=== PATIENT | male | born 1935 | race Caucasian/White ===

== ENCOUNTER → 2021-07-14 08:45 | Outpatient (CLI) | payer MEDICARE, SELFPAY ==
--- NOTE | ~2021-07-14 | CT_ITS ---
EXAMINATION: CT abdomen pelvis wo/w con DATE: 07/14/2021 10:01 INDICATION: History of recurrent urinary tract infections, microscopic hematuria TECHNIQUE: Computed tomography (CT) of the abdomen and pelvis was performed without intravenous contr ast. CT of the abdomen and pelvis was then performed with a total of 130 mL Omnipaque 350 intravenous contrast using a double-bolus technique for simultaneous opacification of the renal parenchyma and r enal collecting system. The dose-length product (DLP) was 1424.29 mGy-cm. Automated exposure control and iterative reconstruction technique were employed. COMPARISON: None FINDINGS: Minimal dependent atelectasis is present in the lung bases. The heart size is normal. There is a moderate-sized sliding hiatal hernia. The liver, spleen, pancreas, and adrenal glands are jaida l. The gallbladder is mildly distended. No stones are identified in the kidneys, ureters, or bladder. There is no hydronephrosis or hydroureter. No suspicious renal or urothelial lesion is identified. T here is a 4.5 x 2.4 x 4.5 cm diverticulum of the left anterolateral bladder wall with subtle surround ing inflammatory fat stranding. No pathologically enlarged abdominal or pelvic lymph nodes are identi fied. There is calcified atherosclerosis of the aorta and many of the other arteries. There is no savannah e intraperitoneal gas or evidence of bowel obstruction. There are changes of bilateral renal hernia r epair. Moderate-sized left hydrocele is noted. There is severe lumbar spondylosis. IMPRESSION: 1. Moderate to large diverticulum of the left anterolateral bladder wall with subtle surrounding fat stranding, consistent with localized inflammation and possibly infection. 2. Gallbladder distention without additional findings of gallbladder inflammatory change. Finding cou ld be due to fasting state. Recommend clinical correlation for right upper quadrant tenderness. 3. Moderate-sized left hydrocele. Reviewed, dictated and finalized at location A. CAL EQUIPMENT REPAIR TECHNICIAN IMPRESSION: 1. Moderate to large diverticulum of the left anterolateral bladder wall with s ubtle surrounding fat stranding, consistent with localized inflammation and pos sibly infection. 2. Gallbladder distention without additional findings of gallbladder inflammato ry change. Finding could be due to fasting state. Recommend clinical correlatio n for right upper quadrant tenderness. 3. Moderate-sized left hydrocele.
--- NOTE | ~2021-07-14 | XR_ITS ---
EXAMINATION: XR abdomen/kub 1V INDICATION: Microscopic hematuria TECHNIQUE: Supine views of the abdomen were obtained on 2 radiographs. COMPARISON: CT from today FINDINGS: No urolithiasis is identified. The bowel gas pattern is normal. The visualized lung bases a re clear. There are changes of bilateral extrarenal hernia repair. 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 IMPRESSION: 1. No radiographic correlate for the patient's symptoms. Reviewed, dictated and finalized at location A. SPECIALIST
[2021-07-14 09:35] LABS: Estimated Glomerular Filt Rate 53
== END ==
PROVIDERS: PCP Internal Medicine; Visit Provider Urology
DX: R31.29 Other microscopic hematuria (principal); N43.3 Hydrocele, unspecified; M16.0 Bilateral primary osteoarthritis of hip; N32.3 Diverticulum of bladder; I70.0 Atherosclerosis of aorta
CPT/HCPCS: 74018; 74178; Q9967

== ENCOUNTER 2023-08-16 16:27 | Emergency (ER) | payer MEDICARE, SELFPAY ==
--- NOTE | ~2023-08-16 | CT_ITS ---
EXAMINATION: CTA brain carotid DATE: 08/16/2023 17:00 INDICATION: Slurred speech. Left leg weakness. TECHNIQUE: Computed tomographic angiography (CTA) of the head was performed with 100 mL Omnipaque-350 intravenous contrast. CTA of the neck was performed with intravenous contrast. Automated exposure co ntrol and iterative reconstruction technique were employed. The dose-length product was 1219.73 mGy-c m. Maximum intensity projection and volume rendered 3D-reconstructions were created by the technologi st on a separate workstation. COMPARISON: Head CT 08/16/2023 FINDINGS: HEAD CTA: There are scattered areas of low attenuation in the cerebral white matter. There is no intr acranial hemorrhage, acute infarction, or abnormal intracranial mass lesion. The ventricles are jaida l in size. There is mild mucosal thickening in the paranasal sinuses. There are likely changes of rig ht ocular lens replacement surgery. The mastoid air cells are normal. The vertebral arteries are codo minant. There is no significant stenosis of basilar artery or the posterior cerebral arteries. The po sterior communicating arteries are normal. There is no significant stenosis of intracranial internal carotid arteries or anterior or middle cerebral arteries. Anterior communicating artery is normal. Th ere is no aneurysm. NECK CTA: There are no pathologically enlarged lymph nodes. There are nodules in the thyroid measurin g up to 11 mm, likely not clinically significant. There is no significant stenosis of the vertebral a rteries. There is plaque in the proximal internal carotid arteries. There is 0% stenosis of the proxi mal right internal carotid artery relative to normal distal artery lumen diameter (NASCET criteria). There is 0% stenosis of the proximal left internal carotid artery relative to normal distal artery beatriz men diameter. IMPRESSION: 1. Mild nonspecific cerebral white matter disease, which likely represents chronic small vessel ische miladis disease. 2. No aneurysm or significant intracranial arterial stenosis. 3. 0% stenosis of the proximal internal carotid arteries relative to normal distal artery lumen diame ters (NASCET criteria). Reviewed, dictated and finalized at location E. SAGE INSTRUCTOR IMPRESSION: 1. Mild nonspecific cerebral white matter disease, which likely represents mountain guide jovanni small vessel ischemic disease. 2. No aneurysm or significant intracranial arterial stenosis. 3. 0% stenosis of the proximal internal carotid arteries relative to normal dis duane artery lumen diameters (NASCET criteria).
--- NOTE | ~2023-08-16 | XR_ITS ---
EXAMINATION: XR chest 1V portable DATE: 08/16/2023 17:26 INDICATION: Cerebrovascular accident. TECHNIQUE: A single frontal view of the chest was obtained on 2 radiographs. COMPARISON: Chest 2 views 01/06/2012, CT abdomen and pelvis 07/14/2021 FINDINGS: There is no pneumonia, pleural effusion, or pneumothorax. The heart size is normal. There a re old healed rib fractures bilaterally. IMPRESSION: 1. No acute cardiopulmonary disease. Reviewed, dictated and finalized at location E. H BALE HEADER
--- NOTE | ~2023-08-16 | CT_ITS ---
EXAMINATION: CT brain wo con DATE: 08/16/2023 16:44 INDICATION: Stroke presenting with slurred speech and left lower limb weakness TECHNIQUE: Computed tomography (CT) of the head was performed without intravenous contrast. Sagittal and coronal reconstructions were performed. The mA was adjusted according to patient size. Iterative reconstruction technique was employed. The dose-length product was 681.00 mGy-cm. COMPARISON: head CT dated 08/16/2019 FINDINGS: Small old lacunar infarct in the right parietal magallon radiata. No acute intracranial hemorrhage, acu te infarction or abnormal extra axial fluid collection. There is mild scattered white matter hypoatte nuation consistent with chronic small vessel ischemic disease. Symmetric prominence of the sulci cons istent with mild age-appropriate diffuse cerebral volume loss. Ventricles are normal and symmetric. N o mass/mass effect. Changes of bilateral intraocular lens replacement. Mild mucosal thickening in the bilateral ethmoid sinuses and the right maxillary and sphenoid sinuses. Mastoid air cells and middle ear cavities are clear. IMPRESSION: 1. 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 No acute intracranial process. 2. Age-related changes including mild diffuse volume loss and mild scattered white matter hypoattenua tion consistent with chronic small vessel ischemic disease. Reviewed, dictated and finalized at location A. LE MACHINE OPERATOR IMPRESSION: 1. 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 No acute intracranial process. 2. Age-related changes including mild diffuse volume loss and mild scattered wh ite matter hypoattenuation consistent with chronic small vessel ischemic diseas e.
--- NOTE | 2023-08-16 16:31 | ECG_ITS ---
Measurements Intervals [place] Rate: 60 P: 59 [place]: 237 QRS: -1 QRSD: 88 T: 61 QT: 420 QTc: 422 Interpretive Statements SINUS RHYTHM WITH FIRST DEGREE AV BLOCK EARLY PRECORDIAL R/S TRANSITION CONSIDER INFERIOR INFARCT, AGE INDETERMINATE BORDERLINE ST ABNORMALITY- ANTEROLATERAL LEADS ABNORMAL ECG NO PREVIOUS ECG AVAILABLE FOR COMPARISON Electronically Signed On 08-16-2023 19:02:39 SURVEY RESEARCHER by Zia Oconnor D.O.
[2023-08-16 16:34] LABS: Glucose Point of Care 147 mg/dl (65-105)
[2023-08-16 16:53] LABS: Estimated Glomerular Filt Rate 52
[2023-08-16 17:08] VITALS: BP 152/53; PULSE 66; RESP 16; TEMP 36.4; O2SAT 100
[2023-08-16 17:09] LABS: Basophils Percent Auto 0.3 % (0.2-1.2); Eosinophils Absolute Auto 0.1 K/mm3 (0-0.3); Eosinophils Percent Auto 1.3 % (0-4.4); Hematocrit 41.8 % (42.0-52.0); Hemoglobin 13.3 g/dL (14.0-18.0); Immature Granulocyte Absolute 0.01 K/mm3 (0.00-0.031); Immature Granulocyte Percent A 0.3 % (0-0.5); Lymphocytes Absolute Auto 1.03 K/mm3 (0.9-3.2); Lymphocytes Percent Auto 26.1 % (18.3-44.2); Mean Corpuscular HGB Conc 31.8 g/dl (32-36); Mean Corpuscular Hemoglobin 29.7 pg (26-34); Mean Corpuscular Volume 93.3 fl (80-100); Mean Platelet Volume 10.7 fl (7.4-10.4); Monocytes Absolute Auto 0.3 K/mm3 (0.1-0.6); Monocytes Percent Auto 7.9 % (2.6-8.5); Neutrophils Absolute Auto 2.5 K/mm3 (1.3-6.7); Neutrophils Percent Auto 64.1 % (45.5-73.1); Platelet Count Result 168 k/mm3 (150-375); Red Blood Count 4.48 M/mm3 (4.6-6.20); Red Cell Distribution Width 13.2 % (11.5-14.5); White Blood Count 3.9 K/mm3 (4.5-10.0)
[2023-08-16 17:19] LABS: Alanine Aminotransferase 16 U/L (6-50); Albumin Level 3.9 g/dL (3.5-5.1); Alkaline Phosphatase 77 U/L (38-126); Anion Gap 6 mmol/L (8-16); Aspartate Amino Transferase 28 U/L (17-59); Bilirubin,Total 0.5 mg/dL (0.2-1.3); Blood Urea Nitrogen 21 mg/dL (9-20); Calcium 8.9 mg/dL (8.4-10.2); Carbon Dioxide 28 mmol/L (22-30); Chloride 104 mmol/L (98-107); Estimated CRCL calculation 47 ml/min; Estimated Glomerular Filt Rate > 60; Glucose 122 mg/dL (65-110); Partial Thromboplastin Time 30.8 SECONDS (22.3-36.8); Potassium 3.9 mmol/L (3.4-5.0); Prothrombin Time 13.9 Seconds (11.1-14.7); Sodium 138 mmol/L (137-145)
[2023-08-16 17:20] VITALS: BP 133/48; PULSE 65; PULSE 66; RESP 16; O2SAT 100
[2023-08-16 17:31] LABS: Troponin I < 0.012 ng/mL (0.000-0.034)
[2023-08-16 17:51] VITALS: BP 122/62; PULSE 63; RESP 14; O2SAT 95
--- NOTE | 2023-08-16 18:02 | ED.NEUROSD ---
HPI - Neuro Symptoms/Deficit General Chief Complaint: Suspected CVA Stated Complaint: slurred speech Time Seen by Provider: 08/16/23 16:33 History of Present Illness HPI Narrative: Patient is an 87-year-old male who presents to the emergency department this afternoon concerned that he is having stroke-like symptoms. Patient states that he felt as though his speech is slurred. When asked if he was on who noticed that or if his family members noticed it patient states that it was him that noticed this. Patient states that symptoms started approximately 1530, 1 hour prior to arrival. Patient denies any additional symptoms including chest pain, shortness of breath, nausea, vomiting, abdominal pain, dysuria, hematuria, constipation, diarrhea, melena, hematochezia, fevers or chills. Patient also denies any headaches, dizziness, lightheadedness, blurry visions, focal weakness, numbness and or tingling. There are no other modifying, alleviating, or precipitating factors at this time. Related Data Home Medications Medication Instructions Recorded Confirmed finasteride 5 mg tablet mg 08/16/23 08/16/23 oxycodone-acetaminophen 5 mg-325 tablet 08/16/23 mg tablet tamsulosin 0.4 mg capsule mg PO 08/16/23 trazodone 50 mg tablet mg 08/16/23 Allergies Allergy/AdvReac Type Severity Reaction Status Date / Time Penicillins Allergy Mild Unknown Verified 08/16/23 17:12 Review of Systems Review of Systems: All systems are reviewed and are negative unless stated otherwise in the HPI. [facility] Past Medical History Medical History Arthritis Cataracts, bilateral CPAP (continuous positive airway pressure) dependence Elevated PSA Enlarged prostate Inguinal hernia Sleep apnea Surgical History Surgical History H/O inguinal hernia repair Social History Social History Smoking status: Never smoker Alcohol intake: never Substance use: never Living arrangements: with family Exam Narrative: General: Alert, awake, afebrile, in no acute distress. HEENT: PERRL, no rhinorrhea, no post nasal drip, oropharynx clear. Neck: Trachea midline, no JVD, no lymphadenopathy. Cardiovascular: Regular rate and rhythm, no murmurs, rubs or gallops, no peripheral edema. Respiratory: Clear to auscultation bilaterally, no tachypnea, no wheezing, no rhonchi, no rubs, no respiratory distress. Abdomen: Soft, nontender, nondistended, no rebound, no guarding, no peritoneal signs. Musculoskeletal: No joint swelling or deformity, normal muscle tone. Skin: No rashes or petechia, no signs of infection. Psychiatric: Alert and oriented, normal behavior and judgment for situation. Neurological: Alert and oriented to person, place, and time. Follows all commands. 5/5 motor strength in the bilateral upper and lower extremity, sensation intact in the bilateral upper and lower extremity, cranial nerves 2-12 grossly intact, no focal deficits appreciated at this time, speech is clear and fluent, patient is soft-spoken, NIH 0, GCS 15. Course Vital Signs Vital signs: Vital Signs Temperature 97.5 F L 08/16/23 17:08 Pulse Rate 66 08/16/23 17:08 Respiratory Rate 16 08/16/23 17:08 Blood Pressure 152/53 H 08/16/23 17:08 Pulse Oximetry 100 08/16/23 17:08 Temperature 97.5 F L 08/16/23 17:08 Pulse Rate 63 08/16/23 17:51 Respiratory Rate 14 08/16/23 17:51 Blood Pressure 122/62 08/16/23 17:51 Pulse Oximetry 95 08/16/23 17:51 MDM - Neuro Symptoms/Deficit MDM Narrative Medical decision making narrative: The patient was evaluated by myself in the emergency department. History is obtained from patient who is an independent historian and physical exam was performed. External medical records were reviewed at this time. IV was established and pertinent tests were order
[2023-08-16 18:21] VITALS: BP 167/54; PULSE 74; RESP 20; O2SAT 97
== END 2023-08-16 18:43 | disposition home or self-care (01) ==
PROVIDERS: Emergency Provider Emergency Medicine; PCP Internal Medicine
DX: R47.81 Slurred speech (principal); T40.2X5A Adverse effect of other opioids, initial encounter; N40.0 Benign prostatic hyperplasia without lower urinary tract symptoms; G47.30 Sleep apnea, unspecified; M19.90 Unspecified osteoarthritis, unspecified site; H26.9 Unspecified cataract; Z79.82 Long term (current) use of aspirin; I44.0 Atrioventricular block, first degree; R94.31 Abnormal electrocardiogram [ECG] [EKG]; R90.82 White matter disease, unspecified
CPT/HCPCS: 70450; 70496; 70498; 71045; 80053; 82948; 84484; 85025; 85610; 85730; 93005; 99284; Q9967

== ENCOUNTER 2024-02-08 01:36 | Day surgery (SDC) | payer MEDICARE, SELFPAY ==
[2024-02-06 12:56] VITALS: BMI 22.6
--- NOTE | 2024-02-06 13:06 | PC.NURSE ---
Report to the Outpatient Waiting Room, entrance under the green pavilion located off [facility], at time _0900_ on date _[id number]_. Planned Procedure Time: _1100_. Time changes happen often and if your time is changed the preop area will call you the afternoon before. - You and your visitor will be asked to self-screen and do not enter if you have any COVID symptoms. - A mask is optional within the hospital at this time. Patients may have clear liquids (water, carbonated beverages, clear teas, apple juice) until 3 hours prior to surgery with a maximum of 20 ounces. - No food from midnight until time of surgery Take the following medications with a SIP of water the morning of surgery: ____None DO NOT STOP ANY OF YOUR OTHER PRESCRIPTION MEDICATIONS PRIOR TO SURGERY ?EXCEPT THE FOLLOWING Medications to discontinue per physician ____All vitamins Date to take last dose___Stop now Please no make-up, nail syriac, hairspray, perfume, deodorant, or body powder the day of surgery. No jewelry (including any body piercings) or valuables the day of surgery, leave them at home. Please take a shower or bath the night before, or the morning of, surgery with an antibacterial soap. Wear comfortable, loose fitting clothing. - Jewelry must be removed prior to entering the operating room. Rings and piercings that are not removed may be cut off. - The hospital will not accept responsibility for valuables. - Please leave all valuables, including medications, at home the day of surgery. If you are going home after surgery, a licensed septic pump truck driver must drive you home. - NO public transportation without another adult if you receive anesthesia. - We recommend that an adult stay with you for 24 hours following discharge. - We also recommend that you do not drive, make important decision, drink alcoholic beverages, or take any drugs that were not prescribed by your health care provider for at least 24 hours after your discharge time. Follow any additional instructions given to you from your surgeon. If you or anyone in your household have experienced Covid symptoms in the past week, please notify your surgeon or the nurse liaison at the phone number below for possible testing. Telephone instructions given to __Joseph___and asked if any additional questions and then verbalized understanding. Patient advised to call surgeon office or pre surgery nurse liaison [phone] if any additional questions.
--- NOTE | 2024-02-07 15:26 | P.PNAN_ITS ---
Anes - Initial Pre Proc Eval Procedure: Operation Date: 02/08/24 11:30 Proposed Procedures p Left Hydrocelectomy - Feliberto Wilson MD Date/Time: 02/07/24 15:26 Surgeon: Feliberto Wilson MD Pre Op Diagnosis: Hydrocele- Left Patient Data Age: 88 Gender: M Height: 1.75 m Weight: 69.5 kg Allergies Allergy/AdvReac Type Severity Reaction Status Date / Time Penicillins Allergy Mild Unknown Verified 02/08/24 10:07 Home Medications Medication Instructions Recorded Confirmed Type finasteride 5 mg tablet 5 mg PO QPM 08/16/23 02/06/24 History oxycodone-acetaminophen 5 mg-325 1 tablet PO Q6H PRN Pain 08/16/23 02/06/24 History mg tablet tamsulosin 0.4 mg capsule 0.4 mg PO HS 08/16/23 02/06/24 History ascorbic acid (vitamin C) 1,000 mg 1 g PO DAILY 02/06/24 02/06/24 History tablet (Vitamin C) calcium 600 mg capsule 600 mg PO DAILY 02/06/24 02/06/24 History cholecalciferol (vitamin D3) 25 25 mcg PO DAILY 02/06/24 02/06/24 History mcg (1,000 unit) capsule (Vitamin D3) cyanocobalamin (vitamin B-12) 1,000 mcg PO DAILY 02/06/24 02/06/24 History 1,000 mcg tablet (Vitamin B-12) ferrous sulfate 325 mg (65 mg 325 mg PO Q48H 02/06/24 02/06/24 History iron) tablet polyethylene glycol 3350 17 17 g PO DAILY 02/06/24 02/06/24 History gram/dose oral powder (Miralax) Patient hx anesthesia problems: none Family hx anesthesia problems: none Results Review: All pre-operative results and documents have been reviewed as part of the pre- operative evaluation. [facility] Past Medical History Medical History (Updated 02/08/24 @ 06:39 by Feliberto Wilson MD) Arthritis Cataracts, bilateral CPAP (continuous positive airway pressure) dependence Elevated PSA Enlarged prostate Inguinal hernia Sleep apnea Spinal cord stimulator status Surgical History Surgical History H/O inguinal hernia repair Social History Social History Smoking status: Never smoker Alcohol intake: never Substance use: never Living arrangements: with family Spiritual care concerns: No Anes - Eval Final PreProcedure Day of Procedure 02/07/24 15:26 Patient weight: normal Heart: regular rate and rhythm Lungs: clear to auscultation and normal air movement Airway: Mallampati scale class II Neurological: alert and oriented Last oral intake: >/= 8 hours ASA classification: III Emergent: no Anesthetic plan: proceed Anesthesia type and monitoring: general GIVS and standard monitoring Results Review: All pre-operative results and documents have been reviewed as part of the pre- operative evaluation. Informed Consent: The patient's anesthetic plan and its attendant risks and benefits were discussed with the patient/family/POA. Questions were solicited and answers provided to the satisfaction of the patient/family/POA.
--- NOTE | 2024-02-08 06:31 | WPDHPUPDATE1 ---
History and Physical Update Update Date/Time: 02/08/24 06:31 History and Physical has been reviewed, including an updated exam of the patient. There are NO changes in the patient's condition. Risks, benefits, and alternatives have been discussed and questions answered. Patient agrees to proceed with procedure.
--- NOTE | 2024-02-08 06:38 | P.HP_ITS ---
History of Present Illness History of Present Illness Consent: Risks, benefits, and alternatives have been discussed and questions answered. Patient agrees to proceed with procedure. Chief complaint: Hydrocele- Left Narrative: Home Trammell is a 88 year old male who I have known for years for various urological reasons. With a past couple years he has had slow progressive swelling of his left hemiscrotum that has now become uncomfortable. Exam and scrotal ultrasonography are consistent with a left hydrocele. After discussion of options he has elected for left hydrocelectomy. He is aware the risk including, not limited to, scrotal hematoma and infection. Review of Systems Review of Systems: All systems reviewed & are unremarkable except as noted in HPI and below PMFSH Past Medical History Medical History (Updated 02/08/24 @ 06:39 by Feliberto Wilson MD) Arthritis Cataracts, bilateral CPAP (continuous positive airway pressure) dependence Elevated PSA Enlarged prostate Inguinal hernia Sleep apnea Spinal cord stimulator status Surgical History Surgical History H/O inguinal hernia repair Social History Social History Smoking status: Never smoker Alcohol intake: never Substance use: never Living arrangements: with family Spiritual care concerns: No Meds Home Medications and Allergies Home Medications Medication Instructions Recorded Confirmed Type finasteride 5 mg tablet 5 mg PO QPM 08/16/23 02/06/24 History oxycodone-acetaminophen 5 mg-325 1 tablet PO Q6H PRN Pain 08/16/23 02/06/24 History mg tablet tamsulosin 0.4 mg capsule 0.4 mg PO HS 08/16/23 02/06/24 History ascorbic acid (vitamin C) 1,000 mg 1 g PO DAILY 02/06/24 02/06/24 History tablet (Vitamin C) calcium 600 mg capsule 600 mg PO DAILY 02/06/24 02/06/24 History cholecalciferol (vitamin D3) 25 25 mcg PO DAILY 02/06/24 02/06/24 History mcg (1,000 unit) capsule (Vitamin D3) cyanocobalamin (vitamin B-12) 1,000 mcg PO DAILY 02/06/24 02/06/24 History 1,000 mcg tablet (Vitamin B-12) ferrous sulfate 325 mg (65 mg 325 mg PO Q48H 02/06/24 02/06/24 History iron) tablet polyethylene glycol 3350 17 17 g PO DAILY 02/06/24 02/06/24 History gram/dose oral powder (Miralax) Allergies Allergy/AdvReac Type Severity Reaction Status Date / Time Penicillins Allergy Mild Unknown Verified 02/06/24 12:51 Exam Const: General: no acute distress Resp: Effort & Inspection: normal respiratory effort GI: Inspection: non-distended GI Palp: No abdominal tenderness and No Guarding due to palpation present (GI) Auscultation: normal bowel sounds : Scrotum: Hydrocele present Assessment and Plan Assessment and plan (1) Left hydrocele: Code(s): N43.3 - Hydrocele, unspecified Status: Acute Assessment and Plan: * Left hydrocelectomy
[2024-02-08 10:00] VITALS: BP 159/48; PULSE 50; RESP 14; TEMP 36.6; O2SAT 100
[2024-02-08] MEDS: LACTATED RINGERS 1,000 ML 30 ML IV CONT (10:00)
[2024-02-08 10:02] LABS: Hematocrit 42.3 % (42.0-52.0); Hemoglobin 13.9 g/dL (14.0-18.0)
[2024-02-08] MEDS: ceFAZolin 2 GM/D5W 50 ML 2 GM/50 ML BAG IVPB (11:21)
[2024-02-08] MEDS: LIDO 1%/EPINEPHRINE 1:100,000 50 ML VIAL INFILTRATE (11:48)
--- NOTE | 2024-02-08 11:56 | W.PM.PROC2 ---
Procedure Note - Detailed Date of Procedure 02/08/24 Pre-op Diagnosis Hydrocele- Left Post-op Diagnosis Same Procedure Performed Left hydrocelectomy Surgeon Feliberto Wilson MD Anesthesia General Description of Procedure The patient was brought to the operative suite where he was prepped and draped in routine sterile fashion while in a supine position after the uneventful induction of a general LMA anesthetic. An incision was made in the median raphe of the scrotum and dissection was carried into the left tunica vaginalis. Clear, straw-colored fluid was drained. The testicle was examined and found to be both visibly and palpably normal. The tunica was everted in a bottle-neck fashion using a running 4-0 chromic. The testicle was restore returned to an orthotopic positioned. The dartos muscle was closed with a running 4-0 chromic and the skin was likewise closed with a running 4-0 chromic. Estimated blood loss throughout this procedure was 5cc . Patient tolerated the procedure well and was taken to the recovery room in good condition. Drains No Packing No Pathology None sent Complications No immediate complications Condition Stable
[2024-02-08 12:06] VITALS: BP 140/48; PULSE 62; RESP 12; O2SAT 97
[2024-02-08 12:30] VITALS: BP 168/61; PULSE 57; RESP 20
[2024-02-08] MEDS: oxyCODONE HCL (*CRX) 5 MG TAB IR PO (12:58)
[2024-02-08 13:00] VITALS: BP 181/65; PULSE 51; RESP 20
[2024-02-08 13:25] VITALS: BP 180/65; PULSE 51; RESP 20
== END 2024-02-08 13:37 | disposition home or self-care (01) ==
PROVIDERS: Anesthesiology; PCP Internal Medicine; Visit Provider Urology
PROC: (CPT 55040; principal; 2024-02-08 11:30)
DX: N43.3 Hydrocele, unspecified (principal); N40.0 Benign prostatic hyperplasia without lower urinary tract symptoms; G47.30 Sleep apnea, unspecified
CPT/HCPCS: 55060; 36415; 85014; 85018; A9270; J0690; J2704; J3010; J7120